=== PATIENT | male | born 1955 | race Hispanic/Latino ===

== ENCOUNTER 2020-11-25 10:27 | Emergency (ER) | payer BC, MEDICARE ==
[~2020-11-25] VITALS: Ht 162.6 cm; Wt 95.3 kg
[~2020-11-25 10:27] MED LIST: ATORVASTATIN CA10 MG PO; CLONAZEPAM0.5 MG PO; FLOMAX0.4 MG PO; LISINOPRIL-HCT1 EAC1 PO; PAROXETINE HCL20 MG PO; TERAZOSIN HCL1 MG PO; ZETIA10 MG PO
[2020-11-25] MEDS ORDERED: LIDOCAINE 1% W/EPINEPHRINE 20 ML VIAL INJ ONE (10:45)
[2020-11-25] MEDS ORDERED: TETANUS/DIPHTHERIA TOX ADULT 0.5 ML SYR IM ONE (11:00)
[2020-11-25] MEDS ORDERED: TRANEXAMIC ACID 1,000 MG/10 ML ML INJ ONE (11:00)
[2020-11-25 11:18] VITALS: BP 151/89
[2020-11-25] MEDS ORDERED: CEPHALEXIN500 MG PO (11:29)
== END 2020-11-25 11:36 | disposition home or self-care (01) ==
LOC: ER 10:41
DX: S61.213A Laceration without foreign body of left middle finger without damage to nail, initial encounter (principal); W26.8XXA Contact with other sharp object(s), not elsewhere classified, initial encounter; E78.00 Pure hypercholesterolemia, unspecified
CPT/HCPCS: 90471; 90714; 99283